=== PATIENT | female | born 1975 | race Caucasian/White ===

== ENCOUNTER 2016-11-06 21:52 | Inpatient (IN) | payer OTHER ==
[~2016-11-06] VITALS: Ht 164 cm; Wt 80.3 kg
[2016-11-06] MEDS ORDERED: RINGERS SOLUTION,LACTATED 1,000 ML IV PRN (23:04)
[2016-11-06] MEDS ORDERED: RINGERS SOLUTION,LACTATED 1,000 ML IV SCH (23:04)
[2016-11-06] MEDS ORDERED: METOCLOPRAMIDE HCL 5 MG/ML 2 ML VIAL IVP PRN (23:15)
[2016-11-06] MEDS ORDERED: CITRIC ACID/SODIUM CITRATE 30 ML SOLUTION UDCUP PO PRN (23:15)
[2016-11-06] MEDS ORDERED: METHY250 PO (23:29)
[2016-11-06] MEDS ORDERED: LEVO25TA9 PO (23:29)
[2016-11-06] MEDS ORDERED: OXYTOCIN 30 UNITS/LACT RINGERS 500 ML IV PRN (23:48)
[2016-11-07] MEDS ORDERED: AMPICILLIN SODIUM 2 GM/NS 100 ML IV ONE
[2016-11-07] MEDS: RINGERS SOLUTION,LACTATED 1,000 ML IV SCH ×2 (00:09→04:59)
[2016-11-07 00:36] LABS: BASOPHILS # (AUTO) 0.04 K/uL (0.00-0.20); BASOPHILS % (AUTO) 0.3 % (0.0-2.0); EOSINOPHILS # (AUTO) 0.39 K/uL (0.00-0.70); HEMATOCRIT 30.3 % (36-46); HEMOGLOBIN 10.3 g/dL (12.0-16.0); LYMPHOCYTES % (AUTO) 14.6 % (22.0-44.0); MEAN CORPUSCULAR HEMOGLOBIN 30.1 pg (26.0-34.0); MEAN CORPUSCULAR VOLUME 89 fL (80-100); MONOCYTES # (AUTO) 1.2 K/uL (0.1-1.0); MONOCYTES % (AUTO) 8.7 % (2.0-9.0); NEUTROPHILS # (AUTO) 9.8 K/uL (1.8-7.7); NEUTROPHILS % (AUTO) 73.5 % (40.0-70.0); RED BLOOD CELL COUNT(AUTO) 3.42 MIL/uL (4.00-5.20); RED CELL DISTRIBUTION WIDTH 14.3 % (11.5-14.5); WHITE BLOOD COUNT (AUTO) 13.4 K/uL (4.5-11.0)
[2016-11-07 01:03] LABS: THYROID STIMULATING HORMONE 1.24 uIU/mL (0.36-3.74)
[2016-11-07 01:33] LABS: ANION GAP 16 mmol/L (8-16); CALCIUM, TOTAL 8.8 mg/dL (8.8-10.5); CARBON DIOXIDE 21 mmol/L (22-29); CHLORIDE 102 mmol/L (98-107); GLOMERULAR FILTR. RATE CALC > 60 mL/min (>60); POTASSIUM 4.1 mmol/L (3.5-5.1); SODIUM SERUM 139 mmol/L (136-145); UREA NITROGEN, BLOOD 8 mg/dL (7-18)
[2016-11-07 01:39] LABS: ALANINE AMINOTRANSFERASE 12 U/L (12-78); ALBUMIN 2.9 g/dL (3.4-5.0); ASPARTATE AMINOTRANSFERASE 12 U/L (15-37); BILIRUBIN,TOTAL 0.5 mg/dL (0.1-1.0); TOTAL PROTEIN, SERUM 6.9 g/dL (6.4-8.2); URIC ACID 3.8 mg/dL (2.6-7.2)
[2016-11-07] MEDS: FentaNYL CITRATE-PF 100 MCG/2 ML VIAL IVP PRN ×2 (02:25→02:31)
[2016-11-07] MEDS: AMPICILLIN SODIUM 1 GM/NS 50 ML IV SCH ×2 (03:53→07:57)
[2016-11-07] MEDS ORDERED: LIDOCAINE HCL 2%/EPI 1:200,000/PF 10 ML VIAL ONE (05:04)
[2016-11-07] MEDS ORDERED: FentaNYL/BUPIV 0.125%/NS/PF 200 ML ED ONE (05:05)
[2016-11-07] MEDS ORDERED: FentaNYL/BUPIV 0.125%/NS/PF 200 ML ED PRN (05:27)
[2016-11-07] MEDS ORDERED: DiphenhydrAMINE HCL 50 MG/ML VIAL IVP PRN (05:30)
[2016-11-07] MEDS ORDERED: ONDANSETRON HCL 4 MG/2 ML VIAL IVP PRN (05:30)
[2016-11-07] MEDS ORDERED: PROMETHAZINE HCL 25 MG/ML VIAL IM PRN (05:30)
[2016-11-07] MEDS ORDERED: NALBUPHINE HCL 10 MG/ML VIAL IVP PRN (05:30)
[2016-11-07] MEDS: LEVOTHYROXINE SODIUM 25 MCG TABLET PO SCH (07:21)
[2016-11-07] MEDS ORDERED: METHYLDOPA 250 MG TABLET PO SCH (08:00)
[2016-11-07] MEDS ORDERED: OXYGEN THERAPY IH SCH (08:00)
[2016-11-07] MEDS ORDERED: BENZOCAINE 20%/MENTHOL 56 GM SPRAY CANISTER TP PRN (10:45)
[2016-11-07] MEDS ORDERED: ACETAMINOPHEN/CODEINE 300-30 MG TABLET PO PRN ×2 (10:45)
[2016-11-07] MEDS ORDERED: LANOLIN 7 GM OINTMENT TP PRN (10:45)
[2016-11-07] MEDS ORDERED: GLYCERIN/WITCH HAZEL LEAF 40 PADS JAR TP PRN (10:45)
[2016-11-07] MEDS: METHYLDOPA 250 MG TABLET PO SCH ×3 (11:58→21:33)
[2016-11-07] MEDS: IBUPROFEN 600 MG TABLET PO PRN ×2 (16:23→22:22)
[2016-11-07] MEDS ORDERED: CITRIC ACID/SODIUM CITRATE 30 ML SOLUTION UDCUP PO ONE (18:15)
[2016-11-07] MEDS ORDERED: MAGNESIUM HYDROXIDE SUSPENSION 30 ML UDCUP PO SCH (21:00)
[2016-11-07] MEDS ORDERED: SENNA/DOCUSATE SODIUM 187-50 MG TABLET PO SCH (21:00)
[2016-11-08] MEDS: LEVOTHYROXINE SODIUM 25 MCG TABLET PO SCH (06:27)
[2016-11-08] MEDS: METHYLDOPA 250 MG TABLET PO SCH (08:10)
[2016-11-08] MEDS ORDERED: IBUP-1547 PO (10:07)
[2016-11-08] MEDS ORDERED: DSS100 PO (10:08)
[2016-11-08] MEDS ORDERED: FERS325 PO (10:09)
== END 2016-11-08 12:50 | disposition home or self-care (01) | DRG 775 ==
LOC: OBSVTOIN 21:52 → 4S 21:52
PROVIDERS: ADMIT Obstetrics & Gynecology; ATTEND Obstetrics & Gynecology
PROC: 10E0XZZ Delivery of Products of Conception, External Approach (ICD-10-PCS; principal; 2016-11-07)
PROC: 0HQ9XZZ Repair Perineum Skin, External Approach (ICD-10-PCS; 2016-11-07)
PROC: 3E0S3CZ (ICD-10-PCS; 2016-11-07)
PROC: 00HU33Z Insertion of Infusion Device into Spinal Canal, Percutaneous Approach (ICD-10-PCS; 2016-11-07)
DX: O99.824 Streptococcus B carrier state complicating childbirth (principal); O99.284 Endocrine, nutritional and metabolic diseases complicating childbirth; E03.9 Hypothyroidism, unspecified; O99.02 Anemia complicating childbirth; D64.9 Anemia, unspecified; O16.4 Unspecified maternal hypertension, complicating childbirth; O70.0 First degree perineal laceration during delivery; Z3A.38 38 weeks gestation of pregnancy; O09.523 Supervision of elderly multigravida, third trimester; Z37.0 Single live birth
CPT/HCPCS: 84436; 84443; 84550; 86850; 86900; 86901; J0290; J2590; J3010; J3490; J7120